=== PATIENT | female | born 1980 | race Caucasian/White ===

== ENCOUNTER 2016-04-02 23:36 | Emergency (ER) | payer OTHER ==
[2016-04-02 23:55] VITALS: BP 134/83; PULSE 86; TEMP 97.7; BMI 24.8
[2016-04-03] MEDS ORDERED: methylPREDNISolone NA SUCC 125 MG/2 ML VIAL IVPB ONE (00:19)
[2016-04-03] MEDS ORDERED: FAMOTIDINE 20 MG/50 ML IVPB 50 ML IVPB ONE ×2 (00:23→00:38)
[2016-04-03] MEDS ORDERED: methylPREDNISolone NA SUCC 125 MG/2 ML VIAL ONE (00:38)
--- NOTE | 2016-04-03 01:19 | PDOC ---
History of Present Illness - History of Present Illness Initial Comments: 04/03/16 01:19 The patient is a 36 year old female, with no significant past medical history, who presents to the emergency department with pruritic tongue, facial hives, swollen lymph nodes, and cough since this morning. She states she woke up this morning feeling an itchiness under her tongue and red blotchy hives around her mouth. The patient states she is allergic to seafood and reports her children were eating seafood yesterday. The patient states she took benadryl earlier today which resolved all of her hives and most of the itchiness to her tongue, however, reports the lymph nodes in her neck have not resolved and are tender to touch. She reports both of her sons are home sick with ear and throat infections. She also states that her co-workers have been sick recently. She denies chest pain, shortness of breath, headache and dizziness. She denies fever, chills, nausea, vomit, diarrhea and constipation. She denies dysuria, frequency, urgency and hematuria. Allergies: Shellfish <Maki Lockwood - Last Filed: 04/03/16 01:19> <Hiral Parada - Last Filed: 04/03/16 03:20> <Estefanía Marshall - Last Filed: 04/03/16 04:20> - General Chief Complaint: Cold Symptoms Stated Complaint: ALLERGIC REACTION Time Seen by Provider: 04/02/16 23:55 Past History <Maki Lockwood - Last Filed: 04/03/16 01:19> - Past Medical History Other medical history: Pt denies - Psycho/Social/Smoking Cessation Hx Suicidal Ideation: No Smoking History: Never smoked Information on smoking cessation initiated: No Hx Alcohol Use: No Drug/Substance Use Hx: No Substance Use Type: None <Hiral Parada - Last Filed: 04/03/16 03:20> <Estefanía Marshall - Last Filed: 04/03/16 04:20> - Past Medical History Allergies/Adverse Reactions: Allergies Allergy/AdvReac Type Severity Reaction Status Date / Time shellfish derived Allergy Severe Swelling Verified 04/02/16 23:56 No Known Drug Allergies Allergy Verified 04/02/16 23:56 Home Medications: Ambulatory Orders No Home Medications 0 dose .ROUTE UTDICT 05/09/13 Amox-Tr/K Cl [Augmentin - 875Mg Tablet] 1 tab PO BID #20 tablet 04/03/16 Epinephrine [Epipen] 0.3 mg IJ PRN #1 auto.injct 04/03/16 Review of Systems - Review of Systems Able to Perform ROS?: Yes Comments:: 04/03/16 01:19 CONSTITUTIONAL: Absent: fever, chills, diaphoresis, generalized weakness, malaise, loss of appetite HEENT: (+) tongue itching and tender cervical lymph nodes. Absent: rhinorrhea, nasal congestion, throat pain, throat swelling, difficulty swallowing, mouth swelling , ear pain, eye pain, visual Changes CARDIOVASCULAR: Absent: chest pain, syncope, palpitations, irregular heart rate, lightheadedness , peripheral edema RESPIRATORY: (+) cough, Absent: shortness of breath, dyspnea with exertion, orthopnea, wheezing, stridor, hemoptysis GASTROINTESTINAL: Absent: abdominal pain, abdominal distension, nausea, vomiting, diarrhea, constipation, melena, hematochezia GENITOURINARY: Absent: dysuria, frequency, urgency, hesitancy, hematuria, flank pain, genital pain MUSCULOSKELETAL: Absent: myalgia, arthralgia, joint swelling SKIN: (+) hive around mouth. Absent: pallor HEMATOLOGIC/IMMUNOLOGIC: Absent: easy bleeding, easy bruising, lymphadenopathy, frequent infections ENDOCRINE: Absent: unexplained weight gain, unexplained weight loss, heat intolerance, cold intolerance NEUROLOGIC: Absent: headache, focal weakness or paresthesias, dizziness, unsteady gait, seizure, mental status changes, bladder or bowel incontinence PSYCHIATRIC: Absent: anxiety, depression, suicidal or homicidal ideation, hallucinations. <Maki Lockwood - Last Filed: 04/03/16 01:19> *Physical Exam - Vital Signs Last Vital Signs Temp Pulse Resp BP Pulse Ox 97.7 F 86 19 134/83 100 04/02/16 23:51 04/02/16 23:51 04/02/16 23:51 04/02/16 23:51 04/02/16 23:51 - Physical Exam Comments: 04/03/16 01:22 GENERAL: Well developed, well nourished. Awake and alert. No acute distress. HEENT: (+) Oropharynx is mildly erythematous. No exudates. Normocephalic, atraumatic. PERRLA, EOMI. No conjunctival pallor. Sclera are non-icteric. Moist mucous membranes. NECK: (+) Right sided, tender, 2cm Cervical lymphadenopathy. Supple. Full ROM. No JVD. Carotid pulses 2+ and symmetric, without bruits. No thyromegaly. CARDIOVASCULAR: Regular rate and rhythm. No murmurs, rubs, or gallops. Distal pulses are 2+ and symmetric. PULMONARY: No evidence of respiratory distress. Lungs clear to auscultation bilaterally. No wheezing, rales or rhonchi. ABDOMINAL: Soft. Non-tender. Non-distended. No rebound or guarding. No organomegaly. Normoactive bowel sounds. MUSCULOSKELETAL Normal range of motion at all joints. No bony deformities or tenderness. No CVA tenderness. EXTREMITIES: No cyanosis. No clubbing. No edema. No calf tenderness. SKIN: (+) Urticaria around mouth. Warm and dry. Normal capillary refill. No jaundice. NEUROLOGICAL: Alert, awake, appropriate. Cranial nerves 2-12 intact. Normoreflexic in the upper and lower extremities. Normal speech. Toes are down-going bilaterally. Gait is normal without ataxia. PSYCHIATRIC: Cooperative. Good eye contact. Appropriate mood and affect. <Maki Lockwood - Last Filed: 04/03/16 01:19> - Vital Signs Last Vital Signs Temp Pulse Resp BP Pulse Ox 97.7 F 86 19 134/83 100 04/02/16 23:51 04/02/16 23:51 04/02/16 23:51 04/02/16 23:51 04/02/16 23:51 <Hiral Parada - Last Filed: 04/03/16 03:20> - Vital Signs Last Vital Signs Temp Pulse Resp BP Pulse Ox 97.7 F 86 19 134/83 100 04/02/16 23:51 04/02/16 23:51 04/02/16 23:51 04/02/16 23:51 04/02/16 23:51 <Estefanía Marshall - Last Filed: 04/03/16 04:20> ED Treatment Course - Medications Given in the ED: ED Medications Discontinued Medications Generic Name Dose Route Start Last Admin Trade Name Freq PRN Reason Stop Dose Admin Diphenhydramine HCl 25 mg 04/03/16 00:19 04/03/16 01:05 Benadryl Injection - IVPUSH 04/03/16 00:20 25 mg ONCE ONE Administration Famotidine/Sodium Chloride 50 mls @ 100 mls/hr 04/03/16 00:23 04/03/16 00:49 Pepcid 20 Mg Premixed Ivpb - IVPB 04/03/16 00:52 100 mls/hr ONCE ONE Administration Methylprednisolone Sodium Succinate 125 mg 04/03/16 00:19 04/03/16 00:49 Solu-Medrol - IVPB 04/03/16 00:20 125 mg ONCE ONE Administration <Maki Lockwood - Last Filed: 04/03/16 01:19> - LABORATORY CBC & Chemistry Diagram: 04/03/16 02:10 04/03/16 02:10 - Medications Given in the ED: ED Medications Discontinued Medications Generic Name Dose Route Start Last Admin Trade Name Nava PRN Reason Stop Dose Admin Diphenhydramine HCl 25 mg 04/03/16 00:19 04/03/16 01:05 Benadryl Injection - IVPUSH 04/03/16 00:20 25 mg ONCE ONE Administration Famotidine/Sodium Chloride 50 mls @ 100 mls/hr 04/03/16 00:23 04/03/16 00:49 Pepcid 20 Mg Premixed Ivpb - IVPB 04/03/16 00:52 100 mls/hr ONCE ONE Administration Methylprednisolone Sodium Succinate 125 mg 04/03/16 00:19 04/03/16 00:49 Solu-Medrol - IVPB 04/03/16 00:20 125 mg ONCE ONE Administration <Hiral Parada - Last Filed: 04/03/16 03:20> - LABORATORY CBC & Chemistry Diagram: 04/03/16 02:10 04/03/16 02:10 - ADDITIONAL ORDERS Additional order review: Laboratory Results 04/03/16 04/03/16 02:10 02:10 Sodium 141 Potassium 4.0 Chloride 105 Carbon Dioxide 27 Anion Gap 9 BUN 10 Creatinine 0.6 Creat Clearance w eGFR > 60 Random Glucose 109 H Calcium 8.5 Total Bilirubin 0.4 AST 16 ALT 20 Alkaline Phosphatase 73 Total Protein 7.4 Albumin 3.6 Serum , Qual Negative 04/03/16 02:10 RBC 4.22 MCV 87.1 MCHC 34.7 RDW 14.1 MPV 8.1 Neutrophils % 76.6 Lymphocytes % 18.1 Monocytes % 2.9 L Eosinophils % 1.5 Basophils % 0.9 - Medications Given in the ED: ED Medications Discontinued Medications Generic Name Dose Route Start Last Admin Trade Name Nava PRN Reason Stop Dose Admin Diphenhydramine HCl 25 mg 04/03/16 00:19 04/03/16 01:05 Benadryl Injection - IVPUSH 04/03/16 00:20 25 mg ONCE ONE Administration Famotidine/Sodium Chloride 50 mls @ 100 mls/hr 04/03/16 00:23 04/03/16 00:49 Pepcid 20 Mg Premixed Ivpb - IVPB 04/03/16 00:52 100 mls/hr ONCE ONE Administration Ceftriaxone Sodium 1 gm/ 50 mls @ 100 mls/hr 04/03/16 02:18 04/03/16 02:21 Dextrose IVPB 04/03/16 02:47 100 mls/hr ONCE ONE Administration Methylprednisolone Sodium Succinate 125 mg 04/03/16 00:19 04/03/16 00:49 Solu-Medrol - IVPB 04/03/16 00:20 125 mg ONCE ONE Administration <Estefanía Marshall - Last Filed: 04/03/16 04:20> Medical Decision Making - Medical Decision Making 04/03/16 02:04 pt reassessed-pt started to c/o oral discomfort and oral exam revealed rt first molar large large composite filling. there was some tenderness to palpation of her buccal vestibule. No evidence of Mitul's angina -pt started on antibiotics 04/03/16 03:19 <Hiral Parada - Last Filed: 04/03/16 03:20> - Medical Decision Making 04/03/16 04:19 Patient Name: Jules Berrios THIS IS A PRELIMINARY REPORT FROM IMAGING CALL [facility] EXAM: CT Neck without contrast. IMAGES: [id number]. The right submandibular gland is asymmetrically enlarged, presumably the clinical palpable abnormality noted in the history, with mild reticulation of the surrounding fat and thickening of the overlying fascia, compatible with a right submandibular adenitis; shotty adenopathy. No calculi or gross organized collection. Impression: as above. THIS DOCUMENT HAS BEEN ELECTRONICALLY SIGNED Pt will be discharged home with augmentin <Estefanía Marshall - Last Filed: 04/03/16 04:20> *DC/Admit/Observation/Transfer - Attestations Scribe Attestion: 04/03/16 01:24 Documentation prepared by Maki Lockwood, acting as medical advisor for Hiral Parada MD <Maki Lockwood - Last Filed: 04/03/16 01:19> <Hiral Parada - Last Filed: 04/03/16 03:20> - Discharge Dispostion Admit: Yes <Estefanía Marshall - Last Filed: 04/03/16 04:20> Diagnosis at time of Disposition: Food allergy, Upper respiratory symptom, Lymphadenopathy, cervical, Dental abscess - Discharge Dispostion Disposition: HOME Condition at time of disposition: Stable - Prescriptions Prescriptions: Amox-Tr/K Cl [Augmentin - 875Mg Tablet] 1 tab PO BID #20 tablet Epinephrine [Epipen] 0.3 mg IJ PRN #1 auto.injct - Patient Instructions Printed Discharge Instructions: DI for Food Allergy, DI for Common Cold, DI for Lymphadenopathy, DI for Dental Pain Additional Instructions: please roll picker your prescription at your pharmacy You need to see your dentist this week please see your regular physician about your enlarged lymph node - Post Discharge Activity Work/School Note: Back to Work
[2016-04-03] MEDS ORDERED: CEFTRIAXONE 50 ML ONE (02:05)
[2016-04-03] MEDS ORDERED: CEFTRIAXONE 1 GM in DEXTROSE 5%-WATER - 50 ML IVPB ONE (02:18)
[2016-04-03 02:19] LABS: BASOPHIL 0.9 % (0-2.0); EOSINOPHIL 1.5 % (0-4.5); MCH 30.2 pg (25.7-33.7); MCHC 34.7 g/dl (32.0-36.0); MEAN CELL VOLUME 87.1 fl (80-96); MEAN PLT VOLUME 8.1 fl (7.5-11.1); NEUTROPHILS 76.6 % (42.8-82.8); PLATELET COUNT 255 K/MM3 (134-434); RDW 14.1 % (11.6-15.6); WHITE BLOOD COUNT 9.6 K/mm3 (4.0-10.0)
[2016-04-03 02:39] LABS: ALBUMIN 3.6 g/dl (3.4-5.0); ANION GAP 9 (8-16); BILIRUBIN,TOTAL 0.4 mg/dL (0.2-1.0); CALCIUM 8.5 mg/dL (8.5-10.1); CO2 27 mmol/L (21-32); CREATININE 0.6 mg/dL (0.55-1.02); GLUCOSE,RANDOM 109 mg/dL (74-106); SGOT/AST 16 U/L (15-37); SGPT/ALT 20 U/L (12-78); TOT PROT 7.4 g/dl (6.4-8.2)
[2016-04-03 02:40] LABS: ALK PHOS 73 U/L (45-117)
== END 2016-04-03 04:42 | disposition home or self-care (01) ==
LOC: JER 23:36
PROC: 3E033GC Introduction of Other Therapeutic Substance into Peripheral Vein, Percutaneous Approach (ICD-10-PCS; principal; 2016-04-02)
PROC: 3E03329 Introduction of Other Anti-infective into Peripheral Vein, Percutaneous Approach (ICD-10-PCS; 2016-04-02)
PROC: 3E0333Z Introduction of Anti-inflammatory into Peripheral Vein, Percutaneous Approach (ICD-10-PCS; 2016-04-02)
PROC: 3E033GC Introduction of Other Therapeutic Substance into Peripheral Vein, Percutaneous Approach (ICD-10-PCS; 2016-04-02)
DX: T78.1XXA Other adverse food reactions, not elsewhere classified, initial encounter (principal); L50.0 Allergic urticaria; Z91.013 Allergy to seafood; K04.7 Periapical abscess without sinus; J06.9 Acute upper respiratory infection, unspecified
CPT/HCPCS: 36415; 70490-TC; 80053; 84703; 85025; 99282-25